=== PATIENT | female | born 1970 | race Caucasian/White ===

== ENCOUNTER → 2017-03-25 | Outpatient (CLI) | payer OTHER ==
[~2017-03-25] MED LIST: ASPIRIN81 M2 PO; ATENOLOL50 MG PO; CALCIUM 500 + D1 TAB PO; CERTAGEN PO; DEPO-PROVER150 MG/ML INJ; FLEXERIL10 MG PO; IBUPROFEN800 MG PO; JANUVIA PO; LANTUS100 U/ML SQ; LANTUS100 UNITS/ SUBQ; LISINOPRIL10 MG PO; NEXIUM PO; PHENERGAN25 M1 PO; PRILOSEC PO; SIMVASTATIN20 MG PO; VOLTAREN75 MG PO; ZOFRAN PO
[2017-03-25 15:38] LABS: URINE APPEARANCE CLEAR; URINE BILIRUBIN NEG (NEG); URINE BLOOD 2+ (NEG); URINE COLOR YELLOW; URINE GLUCOSE >1000 MG/DL (NEG); URINE KETONE NEG (NEG); URINE LEUKOCYTE ESTERASE NEG (NEG); URINE NITRATE NEG (NEG); URINE PH 6.5 (5-8); URINE PROTEIN 2+ (NEG); URINE SPECIFIC GRAVITY 1.012 (1.003-1.035); URINE UROBILINOGEN 0.2 MG/DL (NEG)
[2017-03-25 15:40] LABS: URINE BACTERIA AUWI NEG (NEGATIVE); URINE SQUAMOUS EPITHELIAL CELL NONE SEEN /[HPF]; UWBCS1 AUWI 0-2 (0-5)
[2017-03-25 15:49] LABS: CREATININE,RANDOM URINE 28 mg/dL; TOTAL PROTEIN,RANDOM URINE 126 mg/dl (<10)
[2017-03-25 15:54] LABS: URINE SOURCE CLEAN CATCH
[2017-03-25 16:07] LABS: ALBUMIN SERUM 3.3 g/dL (3.5-5.0); BILIRUBIN,TOTAL 0.3 mg/dL (0.2-2.0); BUN/CREATININE RATIO 15.55; CALCIUM SERUM 9.7 mg/dL (8.4-10.2); CREATININE SERUM 0.9 mg/dL (0.6-1.4); GLOM FILT RATE Estimated 76.7 mL/min (>60); POTASSIUM 4.2 mmol/L (3.5-5.1); PROTEIN TOTAL SERUM 6.8 g/dL (6.0-8.3)
== END | disposition home or self-care (01) ==
LOC: CLAB 15:13
PROVIDERS: Internal Medicine Nephrology
DX: N08 Glomerular disorders in diseases classified elsewhere (principal); R80.9 Proteinuria, unspecified; E11.9 Type 2 diabetes mellitus without complications; K21.9 Gastro-esophageal reflux disease without esophagitis; E78.5 Hyperlipidemia, unspecified; R31.9 Hematuria, unspecified; E05.90 Thyrotoxicosis, unspecified without thyrotoxic crisis or storm
CPT/HCPCS: 36415; 80053; 81003; 82570; 84156

== ENCOUNTER → 2017-05-30 | Outpatient (CLI) | payer OTHER ==
[2017-05-30 15:10] LABS: CREATININE,RANDOM URINE 81 mg/dL; TOTAL PROTEIN,RANDOM URINE 113 mg/dl (<10)
[2017-05-30 15:42] LABS: ALBUMIN SERUM 3.6 g/dL (3.5-5.0); BILIRUBIN,TOTAL 0.2 mg/dL (0.2-2.0); BUN/CREATININE RATIO 18.88; CALCIUM SERUM 9.5 mg/dL (8.4-10.2); CREATININE SERUM 0.9 mg/dL (0.6-1.4); GLOM FILT RATE Estimated 76.7 mL/min (>60); POTASSIUM 4.7 mmol/L (3.5-5.1); PROTEIN TOTAL SERUM 6.8 g/dL (6.0-8.3); URIC ACID 4.8 mg/dL (2.6-7.2)
== END | disposition home or self-care (01) ==
LOC: CLAB 14:04
PROVIDERS: Internal Medicine Nephrology
DX: R31.9 Hematuria, unspecified (principal); N08 Glomerular disorders in diseases classified elsewhere
CPT/HCPCS: 36415; 80053; 80061; 82570; 84156; 84550